=== PATIENT | female | born 1970 | race Caucasian/White ===

== ENCOUNTER 2017-10-01 08:55 | Emergency (ER) | payer MEDICAID ==
[~2017-10-01] VITALS: Ht 162.6 cm; Wt 96.0 kg
[2017-10-01] MEDS ORDERED: HYDROCODONE/ACETAMINOPHEN 5/325MG TABLET PO ONE (09:15)
[2017-10-01 11:24] VITALS: BP 163/93
== END 2017-10-01 11:27 | disposition home or self-care (01) ==
LOC: ER 09:39
DX: S02.2XXA Fracture of nasal bones, initial encounter for closed fracture (principal); Y08.89XA Assault by other specified means, initial encounter; Z90.710 Acquired absence of both cervix and uterus
CPT/HCPCS: 70486; 99284; Z7610